=== PATIENT | male | born 1960 | race Caucasian/White ===

== ENCOUNTER → 2023-05-31 13:28 | Outpatient (REF) | payer BC, SELFPAY | LOC: MRI 3T 13:28 | PROVIDERS: ATTENDING PHYSICIAN Neurological Surgery; FAMILY PHYSICIAN Internal Medicine | DX: D35.2 Benign neoplasm of pituitary gland (principal) | CPT/HCPCS: 70553; A9575 ==

== ENCOUNTER → 2024-02-04 12:58 | Outpatient (REF) | payer MEDICARE, SELFPAY | LOC: PAVMRI 12:58 | PROVIDERS: ATTENDING PHYSICIAN Neurological Surgery; FAMILY PHYSICIAN Internal Medicine | DX: D35.2 Benign neoplasm of pituitary gland (principal) | CPT/HCPCS: 70553; A9575 ==

== ENCOUNTER 2024-08-29 06:19 | Day surgery (SDC) | payer MEDICARE, SELFPAY | END 2024-08-29 12:06 | disposition home or self-care (01) | LOC: GI 06:19 | PROVIDERS: ATTENDING PHYSICIAN Internal Medicine Gastroenterology | DX: Z12.11 Encounter for screening for malignant neoplasm of colon (principal); K64.8 Other hemorrhoids; R12 Heartburn; K31.7 Polyp of stomach and duodenum; D12.3 Benign neoplasm of transverse colon; Z86.0101 Personal history of adenomatous and serrated colon polyps | CPT/HCPCS: 45385; 43239; 88305 ==

== ENCOUNTER → 2025-02-20 07:34 | Outpatient (REF) | payer MEDICARE, SELFPAY | LOC: MRI 3T 07:34 | PROVIDERS: ATTENDING PHYSICIAN Neurological Surgery; FAMILY PHYSICIAN Student in an Organized Health Care Education/Training Program; OTHER PHYSICIAN Internal Medicine Endocrinology, Diabetes & Metabolism | DX: D35.2 Benign neoplasm of pituitary gland (principal) | CPT/HCPCS: 70553; A9575 ==